=== PATIENT | female | born 1955 | race Caucasian/White ===

== ENCOUNTER → 2016-11-20 | Day surgery (SDC) | payer BC ==
[~2016-11-20] MED LIST: ALBUTEROL 0.083% 3 ML NEB NEB ONE; BUPIVACAINE 0.25%-EPINEPHRINE 1:200,000 30 ML ONE; DEXAMETHASONE 4 MG/ML VIAL IV ONE; FENTANYL 100 MCG/2 ML VIAL IV ONE; FENTANYL 100 MCG/2 ML VIAL IV PRN; FLUMAZENIL 0.1 MG/ML INJ 5 ML VIAL IV ONE; FUROSEMIDE 20 MG/2 ML VIAL IV ONE; FUROSEMIDE 20 MG/2 ML VIAL ONE; GLYCOPYRROLATE 1 MG VIAL IM ONE; ISOVUE-300 (61%) 50 ML ONE; LABETALOL 20 MG/4 ML SYRINGE IV PRN; LABETALOL 5 MG/ML MDV IV ONE; LIDOCAINE 4% 5 ML AMPULE NEB ONE; Levofloxacin 750 mg/150 ml D5W 750 MG/150 ML RTU IV ONE; MEPERIDINE 25 MG/ML TUBEX IV PRN; METOPROLOL 5 MG/5 ML SDV IV ONE; MIDAZOLAM 2 MG/2 ML VIAL IV ONE; MORPHINE 4 MG/ML INJECTION IV ONE; Metronidazole 500 mg/100 ml 500 MG/100 ML RTU IV ONE; NEOSTIGMINE 1 MG/1 ML (1:1000) INJ 10 ML MDV IM ONE; NS 1,000 ML IV ONE; ONDANSETRON HCL 4 MG ODT TAB PO PRN; ONDANSETRON HCL 4 MG/2 ML VIAL IV ONE; ONDANSETRON HCL 4 MG/2 ML VIAL IV PRN; PHENYLEPHRINE 10 MG/ML VIAL IC ONE; PROPOFOL 200 MG/20 ML VIAL IV ONE; ROCURONIUM 50 MG/5 ML VIAL IV ONE; hydrALAZINE 20 MG/ML VIAL IV PRN
[2016-11-20 08:56] VITALS: BMI 20.9
[2016-11-20 09:26] LABS: LEUKOCYTES/URINE TRACE (NEGATIVE); NITRITE/URINE NEG (NEGATIVE); RBC/URINE 0-2 (0-5); URINE OCCULT BLOOD NEG (NEG/TRACE)
[2016-11-20 09:44] LABS: AUTOMATED BASOPHIL 0.4 % (0-2); AUTOMATED EOSINOPHIL 0.8 % (0-5); AUTOMATED LYMPH 5.2 % (17-44); AUTOMATED MONOCYTE 4.7 % (3-10); AUTOMATED NEUTROPHIL 88.9 % (45-76); MPV 6.9 fL (7.4-10.4)
--- NOTE | 2016-11-20 09:51 | EDPRACDOC ---
- General Information Chief Complaint: Back Pain Stated Complaint: RIGHT LOWER BACK PAIN Time Seen by Provider: 11/20/16 09:28 Information Source: Patient, Family Mode Of Arrival: Car Home Medications: Home Medications Ondansetron HCl [Zofran] 4 mg PO Q6H PRN 10/01/15 Venlafaxine HCl [Effexor Xr] 75 mg PO DAILY 10/01/15 Pantoprazole Sodium [Protonix] 40 mg PO BID(NIELS) #60 tablet. 10/02/15 LIDOCAINE 5% Patch [Lidoderm 5% Patch] 1 pat TOP DAILY 11/20/16 Linaclotide [Linzess] 145 mcg PO DAILY 11/20/16 Metoclopramide HCl [Reglan] 5 mg PO BID 11/20/16 Allergies/Adverse Reactions: Allergies Allergy/AdvReac Type Severity Reaction Status Date / Time hydromorphone HCl Allergy Nausea/Vomi Verified 11/20/16 08:52 [From Dilaudid] ting Penicillins Allergy Rash-Genera Verified 11/20/16 08:52 lized promethazine HCl Allergy Nausea/Vomi Verified 11/20/16 08:52 [From Phenergan] ting Sulfa (Sulfonamide Allergy Rash-Genera Verified 11/20/16 08:52 Antibiotics) lized - History of Present Illness Onset: every day for "awhile" HPI: PT SAID THAT SHE THINKS SHE HAS A KIDNEY STONE. THE PT SAID THAT SHE FEELS LIKE SHE HAS A STABBING PAIN IN HER RIGHT KIDNEY. Pain Location: Reports: Right, Flank Pain Radiates To: Reports: None Pain Caused By: Reports: Spontaneous Relevant History: Reports: Urolithiasis Pain Severity: Reports: Moderate Pain Quality: Reports: Sharp Associated Signs and Symptoms: Reports: Nausea ED Past Medical History - Patient Medical History Cardiac History: Reports: Hypertension GI/ History: Reports: Kidney Stones (Caused loss of left kidney), Gastroesophageal Reflux Psychological History: Denies: Depression, Substance Use Disorder Systemic History: Reports: Anemia Surgical History: Reports: Cholecystectomy, Hernia Surgery, Other (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 Denies: Hysterectomy - Family Medical History Reports: Diabetes (brother), Cancer (Mother - leukemia), Cardiac Disorders ( Father and paternal grandfather with premature onset CAD). Denies: Hypertension , Stroke - Social Medical History Smoking Status: Never smoker Social History: Denies: Substance Use Disorder ETOH: None Substance Abuse: None Lives In: Home EDM Review of Systems - Review of Systems ROS Negative Except as Marked: Yes All systems reviewed and were negative except as marked Gastrointestinal: Nausea Musculoskeletal: Back - Physical Exam Constitutional: Alert (Awake), No apparent distress Oriented to: Time, Person, Place Last recorded Vital Signs: Last Vital Signs Temp 97.8 F 11/20/16 08:52 Pulse 81 11/20/16 08:55 Resp 16 11/20/16 08:55 BP 153/80 11/20/16 08:55 Pulse Ox 95 11/20/16 08:55 Oxygen Pulse Oxygen Saturation 95 O2 Device Room Air Oxygen Flow Rate Fraction of Inspired Oxygen ( FIO2) - HEENT Head: Normal ( normocephalic) Eye Exam: Normal (PERRL, EOMI, Sclera white) Oropharynx: Normal (Pharynx:Moist without exudate,Gums-no swelling) ENT EAC: Normal TMJ: Normal Nose: No Symptoms Reported (septum midline) Neck: Normal (FROM, trachea at midline) - Respiratory/Cardiovascular Respiratory: Normal - CTA (BBS clear to auscultation without adventitious sounds ) Cardiovascular: Normal (RRR without murmur, gallop or rub) - GI Auscultation: Normal (NABS) Palpation: Normal (Soft,No rebound or guarding, non distended) Tenderness: Non tender Gates's Sign: Negative - Musculoskeletal Back: Normal (Non-Tender) Extremities: Normal (Normal tone, Pulses 2+ No cyanosis or edema, FROM) - Integumentary Skin: Normal, Warm, Dry Lymphatics: Normal (no adenopathy) - Neurologic Memory Impaired: Normal Motor Function: Normal (Normal tone, Pulses 2+ No cyanosis or edema, FROM) Cranial Nerve: Normal (CN II-X11 intact sensation, strength 5/5) Cerebellar: Normal Mood Description: Normal Thought: Coherent Perception: Normal - Re-evaluation Re-evaluation 1 Re-evaluation Time: 10:23 (STILL WITH PAIN) - Results 11/20/16 09:30 11/20/16 09:30 WBC 10.9 xk/uL (3.8-10.8) H 11/20/16 09:30 RBC 4.37 xM/uL (4.20-5.40) 11/20/16 09:30 Hgb 13.9 g/dL (12.0-16.0) 11/20/16 09:30 Hct 42.2 % (36-47) 11/20/16 09:30 MCV 97 fL (81-99) 11/20/16 09:30 MCH 31.8 pg (27-32) 11/20/16 09:30 MCHC 32.9 g/dl (33-36) L 11/20/16 09:30 RDW 15.7 % (11.5-14.5) H 11/20/16 09:30 Plt Count 354 xk/uL (130-400) 11/20/16 09:30 MPV 6.9 fL (7.4-10.4) L 11/20/16 09:30 Neut % (Auto) 88.9 % (45-76) H 11/20/16 09:30 Lymph % (Auto) 5.2 % (17-44) L 11/20/16 09:30 [place] % (Auto) 4.7 % (3-10) 11/20/16 09:30 Eos % (Auto) 0.8 % (0-5) 11/20/16 09:30 Baso % (Auto) 0.4 % (0-2) 11/20/16 09:30 Absolute Neuts (auto) 9.59 xk/uL (1.7-8.2) H 11/20/16 09:30 Absolute Lymphs (auto) 0.55 xk/uL (0.65-4.75) L 11/20/16 09:30 Urine Color Yellow 11/20/16 08:58 Urine Clarity Sl cldy 11/20/16 08:58 Urine pH 5.0 (5.0-8.0) 11/20/16 08:58 Ur Specific [place] 1.020 (1.003-1.035) 11/20/16 08:58 Urine Protein 1+ (NEG/TRACE) H 11/20/16 08:58 Urine Glucose (UA) Neg (NEGATIVE) 11/20/16 08:58 Urine Ketones Neg (NEGATIVE) 11/20/16 08:58 Urine Occult Blood Neg (NEG/TRACE) 11/20/16 08:58 Urine Nitrite Neg (NEGATIVE) 11/20/16 08:58 Urine Bilirubin Neg (NEGATIVE) 11/20/16 08:58 Urine Urobilinogen <2.0 MG/DL (0-1) 11/20/16 08:58 Ur Leukocyte Esterase Trace (NEGATIVE) H 11/20/16 08:58 Urine RBC 0-2 (0-5) 11/20/16 08:58 Urine WBC 2-5 (0-5) 11/20/16 08:58 Ur Epithelial Cells 2+ 11/20/16 08:58 Urine Bacteria Few (NEG/FEW) 11/20/16 08:58 Urine Mucus Occ (NEG/OCC) 11/20/16 08:58 Lab Results 11/20/16 11/20/16 09:30 08:58 WBC 10.9 H RBC 4.37 Hgb 13.9 Hct 42.2 MCV 97 MCH 31.8 MCHC 32.9 L RDW 15.7 H Plt Count 354 MPV 6.9 L Neut % (Auto) 88.9 H Lymph % (Auto) 5.2 L [place] % (Auto) 4.7 Eos % (Auto) 0.8 Baso % (Auto) 0.4 Absolute Neuts (auto) 9.59 H Absolute Lymphs (auto) 0.55 L Urine Color Yellow Urine Clarity Sl cldy Urine pH 5.0 Ur Specific [place] 1.020 Urine Protein 1+ H Urine Glucose (UA) Neg Urine Ketones Neg Urine Occult Blood Neg Urine Nitrite Neg Urine Bilirubin Neg Urine Urobilinogen <2.0 Ur Leukocyte Esterase Trace H Urine RBC 0-2 Urine WBC 2-5 Ur Epithelial Cells 2+ Urine Bacteria Few Urine Mucus Occ - EKG EKG #1 EKG Time: 10:44 -: Yes EKG interpreted by me Rate: bpm: 88 [place]: Normal Rhythm: NSR Block: None Hypertrophy: None ST: Normal - Diagnostic Imaging Abdomen Image interpreted by: Radiologist Small nonobstructing right renal calculi. Left nephrectomy. Findings consistent with early acute appendicitis without abscess IUD noted. - Departure Yes I personally saw and evaluated the patient. Disposition: Admit IP To This Hospital Condition: Fair Final Diagnosis: Acute appendicitis Education/Counseling Given To: Patient Education/Counseling Given Regarding: Diagnosis, Treatment Referrals: Myriam Calero MD [Primary Care Provider] - One Week Prescriptions: No Action Ondansetron HCl [Zofran] 4 mg PO Q6H PRN PRN Reason: Nausea Venlafaxine HCl [Effexor Xr] 75 mg PO DAILY Pantoprazole Sodium [Protonix] 40 mg PO BID(NIELS) #60 tablet. LIDOCAINE 5% Patch [Lidoderm 5% Patch] 1 pat TOP DAILY Metoclopramide HCl [Reglan] 5 mg PO BID Linaclotide [Linzess] 145 mcg PO DAILY Decision to Admit Time: 10:23 Decision to admit date: 11/20/16 Decision to admit: from ED - Physician Consulted Surgery Provider Called: Gilles Gutierrez
[2016-11-20 09:57] LABS: BLOOD UREA NITROGEN 30 MG/DL (7-17); CALCULATED OSMOLALITY 281 MOs/Kg (270-290); CHLORIDE 110 mEq/L (98-107); GLUCOSE 97 mg/dL (70-99); SODIUM LEVEL 143 mEq/L (137-146); TOTAL PROTEIN 7.4 G/DL (6.3-8.2)
--- NOTE | 2016-11-20 10:14 | DIRPT ---
CLINICAL DATA: Right flank pain. History of left nephrectomy for stone disease. EXAM: CT ABDOMEN AND PELVIS WITHOUT CONTRAST TECHNIQUE: Multidetector CT imaging of the abdomen and pelvis was performed following the standard protocol without IV contrast. COMPARISON: CT abdomen 10/01/2015 FINDINGS: Lower chest: Lung bases clear without infiltrate or effusion Hepatobiliary: Liver normal in size and contour without focal lesion. Cholecystectomy. Bile ducts nondilated. Pancreas: Negative Spleen: Negative Adrenals/Urinary Tract: Left nephrectomy. Scattered small nonobstructing calculi on the right. Largest stones measure 5 mm. No ureteral obstruction or stone. Urinary bladder normal. Stomach/Bowel: Negative for bowel obstruction. No bowel edema. Appendix is distended measuring 11 mm in diameter. Mild stranding in the surrounding fat. Findings suggest early acute appendicitis. No appendicolith or abscess. Appendix is located caudal to the cecum. Vascular/Lymphatic: Atherosclerotic calcification aorta and iliac arteries without aneurysm. No lymphadenopathy. Reproductive: 15 mm dense calcification left uterus compatible with fibroid. IUD noted in the uterus unchanged from the prior study. Other: No free fluid or abscess. 15 mm left adnexal cyst. 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 This is unchanged. No acute skeletal abnormality. IMPRESSION: Small nonobstructing right renal calculi. Left nephrectomy. Findings consistent with early acute appendicitis without abscess IUD noted. Electronically Signed By: Anthony Branch M.D. On: 11/20/2016 10:11
--- NOTE | 2016-11-20 12:01 | PCM.SURGCO ---
Consultation Date: 11/20/16 Requesting Physician: Kamryn Suazo Attorney Lawyer: Gilles Gutierrez Consult Reason: Appendicitis - History of Present Illness The patient is a very pleasant 61-year-old female who awoke with pain last evening. She had come to the emergency room and had been evaluated was found to have acute appendicitis. She has had known kidney stones and has had her left kidney taken out because of that. She denies any fever any chills. She had thought she had a kidney stone but indeed was found to have acute appendicitis. She denies any any nausea or vomiting. Chief Complaint: Right flank pain. - Past Medical and Surgical History Cardiac History: Reports: Hypertension. Denies: Coronary Artery Disease Respiratory History: Reports: No Significant History. Denies: Asthma, COPD GI/ History: Reports: Kidney Stones (Caused loss of left kidney), Gastroesophageal Reflux Systemic History: Reports: Anemia. Denies: Diabetes Musculoskeletal History: Reports: No Significant History. Denies: Arthritis, Gout Psychological History: Denies: Depression, Anxiety, Substance Use Disorder Neurological History: Reports: No Significant History. 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 Denies: Hysterectomy Allergies hydromorphone HCl [From Dilaudid] Allergy (Verified 11/20/16 08:52) Nausea/Vomiting Penicillins Allergy (Verified 11/20/16 08:52) Rash-Generalized promethazine HCl [From Phenergan] Allergy (Verified 11/20/16 08:52) Nausea/Vomiting Sulfa (Sulfonamide Antibiotics) Allergy (Verified 11/20/16 08:52) Rash-Generalized Home Medications Ondansetron HCl [Zofran] 4 mg PO Q6H PRN 10/01/15 Venlafaxine HCl [Effexor Xr] 75 mg PO DAILY 10/01/15 Pantoprazole Sodium [Protonix] 40 mg PO BID(NIELS) #60 tablet. 10/02/15 LIDOCAINE 5% Patch [Lidoderm 5% Patch] 1 pat TOP DAILY 11/20/16 Linaclotide [Linzess] 145 mcg PO DAILY 11/20/16 Metoclopramide HCl [Reglan] 5 mg PO BID 11/20/16 - Social History Travel Outside of [place] in the Last 3 Months?: No Lives: With Family Smoking Status: Current some day smoker Social History: Denies: Alcohol Use, Substance Use Disorder - Family History Reports: Diabetes (brother), Cancer (Mother - leukemia), Cardiac Disorders ( Father and paternal grandfather with premature onset CAD). Denies: Hypertension , Stroke - Review of Systems Constitutional: No Symptoms Reported. negative: Chills, Fever Eyes: No Symptoms Reported. negative: Blurred Vision, Double Vision Ears: No Symptoms Reported. negative: Drainage, Hearing Loss Nose: No Symptoms Reported. negative: Abrasion, Bleeding Mouth: No Symptoms Reported. negative: Pain, Dry Mouth Throat/Neck: No Symptoms Reported. negative: Pain, Hoarseness Respiratory: No Symptoms Reported. negative: Cough, Wheezing Cardiovascular: No Symptoms Reported. negative: Chest Pain, Palpitations Gastrointestinal: No Symptoms Reported, Abdominal Pain. negative: Nausea, Vomiting Genitourinary: No Symptoms Reported. negative: Bleeding, Dysuria Neurological: No Symptoms Reported. negative: Dizziness, Seizure Musculoskeletal:: Chronic low back pain. negative: Muscle Pain, Swelling Integumentary: No Symptoms Reported. negative: Bruising, Rash Allergic/Immunologic: No Symptoms Reported. negative: Hives, Itching Hematologic: No Symptoms Reported, Anemia. negative: Lymphadenopathy, Easy Bruising, Easy Bleeding Endocrine: No Symptoms Reported. negative: Weight Gain, Weight Loss Psychiatric: No Symptoms Reported. negative: Anxiety, Depression - Physical Exam Vital Signs: Initial Vitals Temperature 98.6 F 11/20/16 08:40 Pulse Rate 93 11/20/16 08:40 Respiratory Rate 18 11/20/16 08:40 Blood Pressure 164/80 11/20/16 08:40 Pulse Oxygen Saturation 94 11/20/16 08:40 Constitutional: No apparent distress, Alert Oriented to: Time, Person, Place - HEENT Head: Normal. negative: Laceration, Tender Eye: Normal. negative: Edema, Scleral Icterus Oropharynx: Normal. negative: Membranes Dry, Red ENT EAC: Normal. negative: Blood TMJ: Normal. negative: Crepitance, Tender Nose: No Symptoms Reported. negative: Abrasion, Bleeding Respiratory: Normal - CTA. negative: Rales, Rhonchi Cardiovascular: Normal. negative: Bradycardia, Tachycardia, Irregular, Diastolic murmur, Systolic murmur - GI Auscultation: Normal. negative: Bruit Palpation: Normal. negative: Enlarged liver, Enlarged spleen Tenderness: Mild, RLQ Gates's Sign: Negative Rectal Exam: Deferred - Exam Deferred: Yes - Musculoskeletal Back: CVA Tenderness. negative: Abrasion, Ecchymosis Extremities: Normal. negative: Calf Tenderness, Clubbing, Cyanosis, Edema Spine: normal alignment, normal inspection - Integumentary Skin: Normal. negative: Warm, Clammy, Diaphoretic Lymphatics: Normal. negative: Adenopathy, Tender - Neurologic Memory Impaired: Normal Motor Function: Normal Cranial Nerve: Normal Cerebellar: Normal Mood Description: Normal Thought: Coherent Perception: Normal - Lab Results 11/20/16 09:30 11/20/16 09:30 - Assessment/Plan (1) Acute appendicitis K35.80 - UNSPECIFIED ACUTE APPENDICITIS Acute Comment: Admit, IV fluids, IV antibiotics and laparoscopic appendectomy. I explained the risks and benefits of surgery to her including the risk of infection, bleeding and anesthesia and she understood and agreed. (2) Tobacco abuse Z72.0 - TOBACCO USE Acute Comment: Encouraged cessation. (3) Chronic kidney disease N18.9 - CHRONIC KIDNEY DISEASE, UNSPECIFIED Acute unspecified stage N18.9 - Chronic kidney disease, unspecified Comment: Adequate hydration. Avoid nephrotoxic drugs.
--- NOTE | 2016-11-20 12:25 | HIM.ANES ---
Anesthesia Evaluation & Plan - Focused Review of Systems Cardiac History: Yes: Hx Hypertension, Hx Heart Murmur, Hx Cardiac Disorders HEENT: No: Other HEENT Problems Respiratory: No: Hx Asthma, Hx Chronic Obstructive Pulmonary Disease (COPD) Gastrointestinal: Yes: Hx Gastroesophageal Reflux Disease, Hx Gastrointestinal Disorders Neurological/Musculoskeletal: No: HX Cerebrovascular Accident, Hx Seizures, Hx Neurological Disorders Psychological: No Hx Anxiety, No Hx Depression, No Hx Mental/Emotional Disorders Blood/Autoimmune: Yes: Hx Blood Transfusions, Hx Anemia No: Hx AIDS, Hx Hepatitis (type) Smoking Status: Current some day smoker Past Social History: Denies: Alcohol Use, Substance Use Disorder Alcohol use: None Surgical History: Yes: Cholecystectomy, Other (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)) Other Surgical History: Left nephrectomy - Focused Physical Exam NPO since: 11/19/16 Mallampati: Class II Thyromental Distance: Greater than 3 Neck: Full Range of Motion Dental: Removable Dental Work Cardiovascular/Chest: Normal Respiratory: Lungs clear Any problems with anesthesia, including nausea and vomiting?: No Any relatives with a history of Malignant Hyperthermia?: No Beta Ksenia given (if appropriate): N/A Other: Problem List Problem Status Onset Acute appendicitis Acute Chest pain Acute Chronic kidney disease Acute Dehydration Acute GERD (gastroesophageal reflux disease) Acute Hyperkalemia Acute CBC/BMP/Other 11/20/16 09:30 11/20/16 09:30 Allergies Allergy/AdvReac Type Severity Reaction Status Date / Time hydromorphone HCl Allergy Nausea/Vomi Verified 11/20/16 08:52 [From Dilaudid] ting Penicillins Allergy Rash-Genera Verified 11/20/16 08:52 lized promethazine HCl Allergy Nausea/Vomi Verified 11/20/16 08:52 [From Phenergan] ting Sulfa (Sulfonamide Allergy Rash-Genera Verified 11/20/16 08:52 Antibiotics) lized Home Medications Medication Instructions Recorded Last Taken Type Ondansetron HCl [Zofran] 4 mg PO Q6H PRN 10/01/15 Unknown History Venlafaxine HCl [Effexor Xr] 75 mg PO DAILY 10/01/15 11/19/16 History Pantoprazole Sodium [Protonix] 40 mg PO BID(NIELS) #60 tablet. 10/02/15 Rx LIDOCAINE 5% Patch [Lidoderm 5% 1 pat TOP DAILY 11/20/16 11/20/16 07:00 History Patch] Linaclotide [Linzess] 145 mcg PO DAILY 11/20/16 11/19/16 History Metoclopramide HCl [Reglan] 5 mg PO BID 11/20/16 11/19/16 History Height and Weight Patient's height 5 ft 3 in Patient's weight 53.796 kg Weight (Calculated Kilograms) 53.796 BMI 20.9 Vital Signs Temperature 98.9 F 11/20/16 12:07 Pulse Rate 72 11/20/16 12:07 Respiratory Rate 16 11/20/16 12:07 Blood Pressure 153/71 11/20/16 12:07 Pulse Oxygen Saturation 97 11/20/16 12:07 - Anesthetic Plan Anesthesia Type: General ASA Class: 2 -: I have examined this patient and reviewed the medical record. The patient has been assessed prior to anesthesia. Risks and benefits of anesthesia and anesthetic technique options have been discussed and all questions answered. The patient accepts the risk and desires me to proceed with the planned anesthetic.
--- NOTE | 2016-11-20 13:40 | HIMOPRPT ---
DATE OF PROCEDURE: 11/20/16 PREOPERATIVE DIAGNOSIS: Acute appendicitis, abdominal pain. POSTOPERATIVE DIAGNOSIS: Acute appendicitis, abdominal pain. PROCEDURE: Laparoscopic appendectomy. SURGEON: Gilles Gutierrez MD CORE CLEANER: None ANESTHESIA: General Anesthesia. ESTIMATED BLOOD LOSS: Minimal COMPLICATIONS: None noted. ANTIBIOTICS: Preoperative antibiotics given. INDICATIONS: SAROJ LOPEZ is a 61 year-old F patient. She had been found to have acute appendicitis and I felt she would benefit from surgical treatment. I explained the risks and benefits of surgery including the risk of infection, bleeding, and anesthesia. We explained all this in detail and brought the patient for the above-mentioned procedure. PROCEDURE IN DETAIL: The patient was brought to the operating room and placed on the operating room table in supine position. After identification of the site , was given adequate amount of general anesthesia, then prepped and draped in sterile manner. When given okay by anesthesia, after appropriate time-out, an Optiview trocar was placed on umbilicus in usual manner without any problems. Abdomen was insufflated to 15 mmHg pressure with CO2 gas, and the patient was positioned. Two other trocars were placed under direct vision. The appendix was acutely inflamed. I carefully dissected the mesoappendix with harmonic dissection. A JULIA stapler was placed at the base of the appendix and fired without problems. The appendix was placed in an endopouch and removed. Hemostasis was assured and the abdomen was irrigated with copious amounts saline. The staple line was hemostatic. At that point the trocars were removed and hemostasis assured from the trocar site. The 12 mm trocar site was closed with a 1. Vicryl suture in the fascia and then all wounds were brought together with 4 0 Monocryl. Dermabond tissue adhesive was applied and allowed to dry. The patient was then awoke and taken recover room in excellent condition with correct sponge counts needle counts.
--- NOTE | 2016-11-20 15:18 | DIRPT ---
CLINICAL DATA: Post procedure breathing abnormality, in PACU. EXAM: PORTABLE CHEST 1 VIEW COMPARISON: 10/01/2015. FINDINGS: Patient is rotated. Heart size is accentuated by AP technique and low lung volumes. Probable vascular crowding without definite airspace consolidation. No definite pleural fluid or pneumothorax. IMPRESSION: Low lung volumes. Electronically Signed By: Kasey Chan M.D. On: 11/20/2016 15:15
[2016-11-20 16:48] VITALS: TEMP 98.6
[2016-11-20 18:19] VITALS: PULSE 94
--- NOTE | 2016-11-21 06:12 | SC.ANESPOS ---
Post-Anesthesia Note LOC: Fully Awake Post-Anesthesia Assessment: Awake, Returned to Baseline, Hemodynamically Stable , Pain Control Adequate Phase I & II Recovery Complete: Yes Apparent Anesthesia Complication: No : N PACU Discharge Time: 16:45 - Vital Signs Blood Pressure: 110/57 Pulse: 94 Resp Rate: 20 O2 Sat: 97 Temp: 98.6 F - Comments Anesthesia Discharge Time Report Time 16:45
[2016-11-21 06:13] VITALS: BP 110/57
== END ==
LOC: ED 08:38 → SDC 12:32
PROVIDERS: ATTEND Surgery
PROC: 0DTJ4ZZ Resection of Appendix, Percutaneous Endoscopic Approach (ICD-10-PCS; principal; 2016-11-20 12:45)
DX: K35.80 Unspecified acute appendicitis (principal); I12.9 Hypertensive chronic kidney disease with stage 1 through stage 4 chronic kidney disease, or unspecified chronic kidney disease; N18.9 Chronic kidney disease, unspecified; K21.9 Gastro-esophageal reflux disease without esophagitis; F17.200 Nicotine dependence, unspecified, uncomplicated; Z90.49 Acquired absence of other specified parts of digestive tract; Z79.899 Other long term (current) drug therapy
CPT/HCPCS: 36415; 44970; 71010; 74176; 80053; 81001; 85025; 93005; 94640; 94660; 96361; 96365; 96375; 96376; 99284; J1100; J1940; J1956; J2250; J2270; J2370; J2405; J2710; J3010; J3490